=== PATIENT | female | born 1955 | race Caucasian/White ===

== ENCOUNTER 2023-07-04 15:10 | Emergency (ER) | payer MEDICARE, BC ==
[2023-07-04] MEDS: Magnesium Oxide 400 MG Tab PO ONE (19:21)
[2023-07-05 13:48] VITALS: BP 96/56; PULSE 83
== END 2023-07-04 19:26 | disposition home or self-care (01) ==
LOC: FB.ED 15:10
DX: E83.42 Hypomagnesemia (principal); I10 Essential (primary) hypertension; E11.9 Type 2 diabetes mellitus without complications; E03.9 Hypothyroidism, unspecified; Z79.899 Other long term (current) drug therapy; Z79.84 Long term (current) use of oral hypoglycemic drugs
CPT/HCPCS: 36415; 83735; 99283; A9270